=== PATIENT | female | born 1960 | race Caucasian/White ===

== ENCOUNTER 2016-10-06 10:19 | Emergency (ER) | payer BC ==
[2016-10-06 10:35] VITALS: BP 133/66
[2016-10-06] MEDS ORDERED: oxyCODONE/Acetamin 5/325 MG* TAB PO ONE (11:37)
--- NOTE | 2016-10-06 12:19 | RAD ---
Indication: Back pain, fall. 5 views of lumbar spine are reviewed. Vertebral bodies appear normal in height. Disc spaces all well-preserved. Spinous processes are unremarkable. Intervertebral foramen appear patent. IMPRESSION: No fracture of the lumbar spine is noted. Diffuse osteopenia is noted.
--- NOTE | 2016-10-06 12:29 | ED ---
Back Pain - HPI Summary HPI Summary: 56F presents with back pain s/p fall today. She states the pain is most intense on her left side. She denies any pain down her leg or any numbness or tingling. She states that pain feels like muscle spasms. She has not taken anything for the pain. - History of Current Complaint Chief Complaint: EDBackInjuryPain Stated Complaint: FALL / BACK PAIN Time Seen by Provider: 10/06/16 11:15 Pain Intensity: 10 - Allergies/Home Medications Allergies/Adverse Reactions: Allergies Allergy/AdvReac Type Severity Reaction Status Date / Time No Known Allergies Allergy Verified 10/06/16 10:35 PMH/Surg Hx/FS Hx/Imm Hx Endocrine/Hematology History: Denies: Hx Anticoagulant Therapy Respiratory History: Denies: Hx Asthma Musculoskeletal History: Denies: Hx Scoliosis Neurological History: Denies: Hx Headaches, Other Neuro Impairments/Disorders - Surgical History Surgery Procedure, Year, and Place: [place] [id number] Infectious Disease History: No Infectious Disease History: Denies: Traveled Outside the in Last 30 Days - Family History Known Family History: Negative: Cardiac Disease - Social History Alcohol Use: None Substance Use Type: Reports: None Smoking Status (MU): Never Smoked Tobacco Review of Systems Negative: Fever Negative: Chest Pain Negative: Shortness Of Breath Positive: Myalgia - back pain All Other Systems Reviewed And Are Negative: Yes Physical Exam Triage Information Reviewed: Yes Vital Signs On Initial Exam: Initial Vitals Temp Pulse Resp BP Pulse Ox 98.1 F 102 19 133/66 98 10/06/16 10:31 10/06/16 10:31 10/06/16 10:31 10/06/16 10:31 10/06/16 10:31 Vital Signs Reviewed: Yes Appearance: Positive: Well-Appearing Skin: Positive: Warm, Dry Head/Face: Positive: Normal Head/Face Inspection ENT: Positive: Normal ENT inspection, Pharynx normal, TMs normal Respiratory/Lung Sounds: Positive: Clear to Auscultation, Breath Sounds Present Cardiovascular: Positive: Normal, RRR Musculoskeletal: Positive: Strength/ROM Intact - back, Other - neg SLR, good pulses, no midline tenderness, tenderness to left Diagnostics - Vital Signs Vital Signs Temp Pulse Resp BP Pulse Ox 10/06/16 10:31 98.1 F 102 19 133/66 98 - Laboratory Lab Statement: Any lab studies that have been ordered have been reviewed, and results considered in the medical decision making process. - Radiology xray Xray Interpretation: No Acute Changes - IMPRESSION: No fracture of the lumbar spine is noted. Diffuse osteopenia is noted. Radiology Interpretation Completed By: Radiologist Back Pain Course/Dx - Course Course Of Treatment: 56 F presents with back pain today. She fell on some ice. her pain is greatest on the left side, neg SLR, xray normal, will treat conservatively, patient agrees with plan - Diagnoses Differential Diagnosis/HQI/PQRI: Positive: Herniated Disc, Strain, Sprain Provider Diagnoses: Back pain Discharge - Discharge Plan Condition: Good Disposition: HOME Prescriptions: Cyclobenzaprine TAB* [Flexeril TAB*] 10 mg PO TID PRN #9 tab PRN Reason: Pain Patient Education Materials: Back Pain (ED) Referrals: Geraldine Pritchett NP [Primary Care Provider] - Additional Instructions: Take muscle relaxers three times a day for 3 days Use ibuprofen or Tylenol for pain every 6 hours ice/heat area, move as much as possible Follow up with primary within 5 days Return to ED if unable to ambulate, vomiting, severe headache, or develop any new or worsening symptoms
== END 2016-10-06 12:38 | disposition home or self-care (01) ==
LOC: ED 10:19
DX: M54.9 Dorsalgia, unspecified (principal)
CPT/HCPCS: 36415; 72110; 86703; 86803; 99281; A9270-GY